=== PATIENT | male | born 1955 | race Caucasian/White ===

== ENCOUNTER 2017-03-28 01:36 | Inpatient (IN) | payer OTHER ==
[~2017-03-28] VITALS: Ht 185.4 cm; Wt 87.9 kg
[2017-03-28] VITALS (24 sets, daily range): BP systolic 128–160; BP diastolic 83–108
[2017-03-28 01:59] LABS: BASOPHIL COUNT 0.1 K/uL (0-0.1); EOSINOPHIL (%) 1.3 % (0-5); EOSINOPHIL COUNT 0.1 K/uL (0-0.3); HEMATOCRIT 51.6 % (38.0-50.0); IMMATURE GRANULOCYTE (%) 0.2 % (0.0-0.7); INSTRUMENT ABS NEUTROPHIL CT 4.5 K/uL; LYMPHOCYTE COUNT 2.9 K/uL (1.0-2.8); MCHC 34.5 G/DL (30.0-36.0); MCV 89.7 FL (86-99); MEAN PLAT.VOLUME 10.7 uM^3 (9.0-12.4); MONOCYTE (%) 11.2 % (3-12); NEUTROPHIL (%) 52.7 % (45-76); NEUTROPHIL COUNT 4.5 K/uL (1.8-6.4); PLATELET COUNT 259 K/uL (156-360); RBC DIS.WIDTH-CV 12.7 % (11.8-14.6); RBC DIS.WIDTH-SD 40.8 % (39-53); RED BLOOD COUNT 5.75 M/uL (4.00-5.50); WHITE BLOOD COUNT 8.5 K/uL (4.1-10.2)
[2017-03-28 02:10] LABS: PROTHROMBIN TIME 10.5 (9.2-11.2); PTT 26.1 (25-32)
[2017-03-28 02:20] LABS: TROP-I INTERPRETATION NEGATIVE; TROPONIN-I < 0.01 ng/mL (0.0-0.30)
[2017-03-28 02:51] LABS: AMYLASE 62 IU/L (1-118); CHLORIDE 104 mEq/L (99-109); POTASSIUM 3.4 mEq/L (3.7-5.4); SODIUM 137 mEq/L (136-147)
[2017-03-28 02:53] LABS: GLUCOSE 231 mg/dL (70-99)
[2017-03-28 02:54] LABS: ANION GAP 11 MEQ/L (2-14)
[2017-03-28 02:56] LABS: SERUM ETHYL ALCOHOL < 10 mg/dL
[2017-03-28 02:57] LABS: GFR ESTIMATE (CALCULATED) > 59 mL/min/
[2017-03-28 02:58] LABS: UREA NITROGEN (BUN) 15 mg/dL (9-23)
[2017-03-28 03:00] LABS: LIPASE 43 U/L (1.0-51.0)
[2017-03-28 04:45] LABS: METH RESISTANT S AUREUS PCR NEGATIVE (NEGATIVE)
[2017-03-28 05:11] LABS: PROBE CHECK PASS; SPECIMEN PROCESSING CONTROL PASS
[2017-03-28 07:34] LABS: EOSINOPHIL (%) 0 % (0-5); HEMATOCRIT 51.6 % (38.0-50.0); IMMATURE GRANULOCYTE (%) 0.5 % (0.0-0.7); IMMATURE GRANULOCYTE COUNT 0.1 K/uL; INSTRUMENT ABS NEUTROPHIL CT 11.1 K/uL; LYMPHOCYTE COUNT 0.8 K/uL (1.0-2.8); MCH 31.6 PG (29.0-34.0); MCHC 34.7 G/DL (30.0-36.0); MEAN PLAT.VOLUME 9.6 uM^3 (9.0-12.4); MONOCYTE (%) 7.6 % (3-12); NEUTROPHIL (%) 85.8 % (45-76); NEUTROPHIL COUNT 11.1 K/uL (1.8-6.4); PLATELET COUNT 232 K/uL (156-360); RBC DIS.WIDTH-CV 12.8 % (11.8-14.6); RBC DIS.WIDTH-SD 42.5 % (39-53); RED BLOOD COUNT 5.67 M/uL (4.00-5.50)
[2017-03-28 08:20] LABS: TROP-I INTERPRETATION POSITIVE; TROPONIN-I 48.28 ng/mL (0.0-0.30)
[2017-03-28 08:31] LABS: ANION GAP 11 MEQ/L (2-14); CHLORIDE 105 MEQ/L (99-109); GFR ESTIMATE (CALCULATED) > 59 mL/min/; GLUCOSE 247 mg/dL (70-99); SAMPLE HEMOLYSIS CHECK 0; SAMPLE ICTERIC CHECK 0; SAMPLE LIPEMIA CHECK 0; SODIUM 137 MEQ/L (136-147); TOTAL CK 4184 IU/L (1-294); UREA NITROGEN (BUN) 13 mg/dL (9-23)
[2017-03-28 08:32] LABS: CREATINE KINASE 4184 IU/L (1-294); POTASSIUM 4.7 MEQ/L (3.7-5.4)
[2017-03-28 08:43] LABS: CK-MB 252.6 ng/mL (0.0-4.9)
[2017-03-28 18:23] LABS: TROP-I INTERPRETATION POSITIVE
[2017-03-28 18:25] LABS: CK-MB 131.4 ng/mL (0.0-4.9)
[2017-03-28 18:34] LABS: TROPONIN-I 72.23 ng/mL (0.0-0.30)
[2017-03-28 18:53] LABS: TOTAL CK 2360 IU/L (1-294)
[2017-03-28 18:55] LABS: CREATINE KINASE 2360 IU/L (1-294)
[2017-03-28 22:14] LABS: POINT-OF-CARE METER ID UU14174217
[2017-03-29] VITALS (16 sets, daily range): BP systolic 81–129; BP diastolic 55–87
[2017-03-29 06:35] LABS: TROP-I INTERPRETATION POSITIVE; TROPONIN-I 62.89 ng/mL (0.0-0.30)
[2017-03-29 07:04] LABS: CK-MB 47.8 ng/mL (0.0-4.9)
[2017-03-29 07:24] LABS: ANION GAP 12 MEQ/L (2-14); CHLORIDE 99 MEQ/L (99-109); CREATINE KINASE 1143 IU/L (1-294); GFR ESTIMATE (CALCULATED) > 59 mL/min/; GLUCOSE 212 mg/dL (70-99); POTASSIUM 3.9 MEQ/L (3.7-5.4); SAMPLE HEMOLYSIS CHECK 0; SAMPLE ICTERIC CHECK 0; SAMPLE LIPEMIA CHECK 0; SODIUM 139 MEQ/L (136-147); TOTAL CK 1143 IU/L (1-294); UREA NITROGEN (BUN) 14 mg/dL (9-23)
[2017-03-30 00:43] VITALS: BP 96/62
[2017-03-30 07:33] VITALS: BP 110/68
[2017-03-30 11:25] VITALS: BP 121/71
[2017-03-30] MEDS ORDERED: EFFIENT10 MG PO (11:35)
[2017-03-30] MEDS ORDERED: CARVEDILOL12.5 MG PO (11:35)
[2017-03-30] MEDS ORDERED: ASPIR-LOW81 MG PO (11:35)
[2017-03-30] MEDS ORDERED: LISINOPRIL10 MG PO (11:35)
[2017-03-30] MEDS ORDERED: CRESTOR20 MG PO (11:35)
[2017-03-30] MEDS ORDERED: NITROSTAT0.4 MG SL (11:35)
== END 2017-03-30 13:50 | disposition home or self-care (01) | DRG 247 ==
LOC: EME 01:36 → CATH 02:25 → EME 02:25 → 4EAST 03:29 → 4WEST 03:29 → 4EAST 03-29 14:17
PROVIDERS: Emergency Medicine; Internal Medicine Interventional Cardiology
DX: I21.09 ST elevation (STEMI) myocardial infarction involving other coronary artery of anterior wall (principal); I25.10 Atherosclerotic heart disease of native coronary artery without angina pectoris; I25.5 Ischemic cardiomyopathy; E11.9 Type 2 diabetes mellitus without complications; E78.5 Hyperlipidemia, unspecified; Q25.0 Patent ductus arteriosus; Z88.0 Allergy status to penicillin; Z88.2 Allergy status to sulfonamides
CPT/HCPCS: 36415; 71010; 80048; 80048 91; 80061; 80076; 81003; 82150; 82550; 82550 91; 82553; 82948; 83036; 83690; 83735; 84484; 85025; 85025 91; 85347; 85610; 85730; 86900; 86901; 87641; 93005; 93306; 94799; 99281; 99284; C1725; C1769; C1874; C1887; G0103; G0480; J0461; J0780; J1644; J1940; J2250; J2270; J2405; J3010